=== PATIENT | female | born 1965 | race Caucasian/White ===

== ENCOUNTER → 2016-09-24 | Outpatient (CLI) | payer OTHER ==
--- NOTE | 2016-09-25 07:44 | MM ---
Reason for exam: screening (asymptomatic). Last mammogram was performed 2 years and 3 months ago. Physical Findings: A clinical breast exam by your physician is recommended on an annual basis and results should be correlated with mammographic findings. MG Screening Mammo w CAD Bilateral CC and MLO view(s) were taken. Prior study comparison: June 14, 2014, bilateral MG screening mammo w CAD. June 11, 2013, bilateral digital screening mammo w/CAD. The breast tissue is heterogeneously dense. This may lower the sensitivity of mammography. Asymmetric breast tissue in the right breast is stable. There is no discrete abnormality. ASSESSMENT: Negative, BI-RAD 1 RECOMMENDATION: Routine screening mammogram of both breasts in 1 year.
== END | disposition home or self-care (01) ==
LOC: RADMAMWWP 07:02
PROVIDERS: ATTEND Obstetrics & Gynecology
DX: Z12.31 Encounter for screening mammogram for malignant neoplasm of breast (principal)

== ENCOUNTER → 2018-03-24 | Outpatient (CLI) | payer OTHER ==
--- NOTE | 2018-03-26 13:44 | MM ---
Reason for exam: screening (asymptomatic). Last mammogram was performed 1 year and 6 months ago. Physical Findings: A clinical breast exam by your physician is recommended on an annual basis and results should be correlated with mammographic findings. MG Screening Mammo w CAD Bilateral CC and MLO view(s) were taken. Prior study comparison: September 24, 2016, bilateral MG screening mammo w CAD. June 14, 2014, bilateral MG screening mammo w CAD. The breast tissue is heterogeneously dense. This may lower the sensitivity of mammography. No significant changes when compared with prior studies. ASSESSMENT: Negative, BI-RAD 1 RECOMMENDATION: Routine screening mammogram of both breasts in 1 year.
== END | disposition home or self-care (01) ==
LOC: RADMAMWWP 13:30
PROVIDERS: ATTEND Family Medicine
DX: Z12.31 Encounter for screening mammogram for malignant neoplasm of breast (principal)
CPT/HCPCS: 77067

== ENCOUNTER 2018-06-23 10:16 | Day surgery (SDC) | payer BC, OTHER ==
[2018-06-20 10:38] VITALS: BMI 24.2
--- NOTE | 2018-06-22 18:54 | P.GSHP ---
History of Present Illness H&P Date: 06/23/18 CHIEF COMPLAINT: Colon screen HISTORY OF PRESENT ILLNESS: The patient is a 52-year-old female who presents for colon screen. Lower endoscopy was offered for further evaluation and management. PAST MEDICAL HISTORY: Please see list. PAST SURGICAL HISTORY: Please see list. MEDICATIONS: Please see list. ALLERGIES: Please see list. SOCIAL HISTORY: No illicit drug use FAMILY HISTORY: No reports of Crohn disease or ulcerative colitis. REVIEW OF ORGAN SYSTEMS: CONSTITUTIONAL: No reports of fevers or chills. PHYSICAL EXAM: VITAL SIGNS: Stable GENERAL: Well-developed pleasant in no acute distress. HEENT: No scleral icterus. Extraocular movements grossly intact. Moist buccal mucosa. NECK: Supple without lymphadenopathy. CHEST: Unlabored respirations. Equal bilateral excursions. CARDIOVASCULAR: Regular rate and rhythm. Distal 2+ pulses. ABDOMEN: Soft, nontender, nondistended. MUSCULOSKELETAL: No clubbing, cyanosis, or edema. ASSESSMENT: 1. Colon screen. PLAN: 1. Recommend proceeding with a lower endoscopy Past Medical History Additional Past Medical History / Comment(s): recent blood in stool History of Any Multi-Drug Resistant Organisms: None Reported Past Surgical History: Uterine Ablation Additional Past Surgical History / Comment(s): D & C Past Anesthesia/Blood Transfusion Reactions: No Reported Reaction Smoking Status: Never smoker - Past Family History Father Family Medical History: Cancer Medications and Allergies Home Medications Medication Instructions Recorded Confirmed Type L.acidoph,Paracasei, B.lactis 1 each PO DAILY 06/20/18 06/20/18 History [Probiotic] Allergies Allergy/AdvReac Type Severity Reaction Status Date / Time No Known Allergies Allergy Verified 06/20/18 10:26
[~2018-06-23 10:16] MED LIST: LACTATED RINGERS 1,000 ML IV SCH; LIDOCAINE 1% 20 ML VIAL (10MG/ML) FOR IV START INTRADERMA PRN
[2018-06-23 10:41] VITALS: RESP 16; TEMP 97
[2018-06-23] MEDS ORDERED: PROPOFOL 10 MG/ML 20 ML VIAL IV ONE (11:08)
[2018-06-23] MEDS ORDERED: MIDAZOLAM 2 MG/2 ML VIAL ONE (11:08)
--- NOTE | 2018-06-23 11:32 | P.PCN ---
Date of Procedure: 06/23/18 Description of Procedure: PREOPERATIVE DIAGNOSIS: Colonoscopy screening. POSTOPERATIVE DIAGNOSIS: Colonoscopy screening. OPERATION: Colonoscopy to the ileocecal valve and appendiceal orifice. SURGEON: Romi Luke MD. ANESTHESIA: MAC. INDICATIONS: The patient is a 61-year-old female who presents for colonoscopy screening. Benefits and risks were described and informed consent was obtained. DESCRIPTION OF PROCEDURE: The patient had undergone Gatorade, MiraLAX and Dulcolax prep. He had been brought into the operating room and laid in the left lateral decubitus position. After adequate intravenous sedation, the rectum was examined with 2% lidocaine jelly. Small external hemorrhoids were encountered. The rectal tone was within normal limits. No lesions were palpated in the rectal vault. An Olympus colonoscope was advanced until the ileocecal valve and appendiceal orifice were clearly viewed. The prep was excellent with clear visualization of the mucosal folds. The scope was removed with visualization of each mucosal fold. No scattered diverticulosis was encountered. No colonic polyps were found. No evidence of focal colitis was found. Retroflexion of the scope demonstrated grade 1 internal hemorrhoids without active bleeding or inflammation. The colon was desufflated. The patient had tolerated the procedure well. Withdrawal time was over 6 minutes. FINDINGS: Internal hemorrhoids, grade 1 External prolapsed hemorrhoids, grade 1 No arteriovenous malformations. No adenomatous polyps. No focal colitis. RECOMMENDATIONS: Lower endoscopy in 10 years per screening guidelines, 2027 Plan - Discharge Summary New Discharge Prescriptions: No Action L.acidoph,Paracasei, B.lactis [Probiotic] 1 each PO DAILY Discharge Medication List L.acidoph,Paracasei, B.lactis [Probiotic] 1 each PO DAILY 06/20/18 [History]
[2018-06-23 11:52] VITALS: BP 117/76; PULSE 75
== END 2018-06-23 12:13 | disposition home or self-care (01) ==
LOC: ORWHC2ENDO 10:16
PROVIDERS: ATTEND Surgery Plastic and Reconstructive Surgery
DX: K64.0 First degree hemorrhoids (principal); K64.8 Other hemorrhoids
CPT/HCPCS: 81025; 45378; J2250; J2704

== ENCOUNTER → 2019-06-19 | Outpatient (CLI) | payer BC ==
--- NOTE | 2019-06-22 08:59 | MM ---
Reason for exam: screening (asymptomatic). Last mammogram was performed 1 year and 3 months ago. History: Patient is postmenopausal. Physical Findings: A clinical breast exam by your physician is recommended on an annual basis and results should be correlated with mammographic findings. MG Screening Mammo w CAD Bilateral CC and MLO view(s) were taken. Prior study comparison: March 24, 2018, bilateral MG screening mammo w CAD. September 24, 2016, bilateral MG screening mammo w CAD. The breast tissue is heterogeneously dense. This may lower the sensitivity of mammography. New right upper inner quadrant middle posterior depth focal asymmetry. ASSESSMENT: Incomplete: need additional imaging evaluation, BI-RAD 0 RECOMMENDATION: Special view mammogram of the right breast. If lesion persists on supplemental views, image directed ultrasound is recommended. [facility] will attempt to contact patient to return for supplemental views and ultrasound if indicated.
== END | disposition home or self-care (01) ==
LOC: RADMAMWWP 07:24
PROVIDERS: ATTEND Family Medicine
DX: Z12.31 Encounter for screening mammogram for malignant neoplasm of breast (principal)
CPT/HCPCS: 77067

== ENCOUNTER → 2019-07-01 | Outpatient (CLI) | payer BC ==
--- NOTE | 2019-07-01 14:40 | MM ---
Reason for exam: additional evaluation requested from abnormal screening. Last mammogram was performed less than 1 month ago. History: Patient is postmenopausal. Physical Findings: Nurse did not find any significant physical abnormalities on exam. MG 3D Work Up W/Cad RT Spot compression CC, spot compression MLO, and ML view(s) were taken of the right breast. Prior study comparison: June 19, 2019, bilateral MG screening mammo w CAD. March 24, 2018, bilateral MG screening mammo w CAD. The breast tissue is heterogeneously dense. This may lower the sensitivity of mammography. The previously seen abnormality resolves on additional views and appears as fibroglandular tissue compatible with summation. No suspicious abnormality. These results were verbally communicated with the patient and result sheet given to the patient on 07/01/19. ASSESSMENT: Negative, BI-RAD 1 RECOMMENDATION: Return to routine screening mammogram schedule for both breasts.
== END | disposition home or self-care (01) ==
LOC: RADMAMWWP 13:47
PROVIDERS: ATTEND Family Medicine
DX: R92.8 Other abnormal and inconclusive findings on diagnostic imaging of breast (principal)
CPT/HCPCS: 77061; 77065

== ENCOUNTER → 2020-07-20 | Outpatient (CLI) | payer BC ==
--- NOTE | 2020-07-22 10:23 | MM ---
Reason for exam: screening (asymptomatic). Last mammogram was performed 1 year and 1 month ago. History: Patient is postmenopausal. Physical Findings: A clinical breast exam by your physician is recommended on an annual basis and results should be correlated with mammographic findings. MG Screening Mammo w CAD Bilateral CC and MLO view(s) were taken. Prior study comparison: July 01, 2019, right breast MG 3d work up w/cad RT. June 19, 2019, bilateral MG screening mammo w CAD. The breast tissue is heterogeneously dense. This may lower the sensitivity of mammography. Posterior right CC and posterior left MLO view asymmetric densities are unchanged. No significant changes when compared with prior studies. ASSESSMENT: Negative, BI-RAD 1 RECOMMENDATION: Routine screening mammogram of both breasts in 1 year.
== END | disposition home or self-care (01) ==
LOC: RADMAMWWP 11:12
PROVIDERS: ATTEND Obstetrics & Gynecology
DX: Z12.31 Encounter for screening mammogram for malignant neoplasm of breast (principal)
CPT/HCPCS: 77067

== ENCOUNTER → 2021-07-26 | Outpatient (CLI) | payer BC ==
--- NOTE | 2021-07-27 14:31 | MM ---
Reason for exam: screening (asymptomatic). Last mammogram was performed 1 year ago. History: Patient is postmenopausal. Taking estrogen for 2 months. Taking progesterone for 2 months. Physical Findings: A clinical breast exam by your physician is recommended on an annual basis and results should be correlated with mammographic findings. MG 3D Screening Mammo W/Cad Bilateral CC and MLO view(s) were taken. Prior study comparison: July 20, 2020, bilateral MG screening mammo w CAD. July 01, 2019, right breast MG 3d work up w/cad RT. The breast tissue is heterogeneously dense. This may lower the sensitivity of mammography. No significant changes when compared with prior studies. ASSESSMENT: Benign, BI-RAD 2 RECOMMENDATION: Routine screening mammogram of both breasts in 1 year.
== END | disposition home or self-care (01) ==
LOC: RADMAMWWP 10:57
PROVIDERS: ATTEND Obstetrics & Gynecology
DX: Z12.31 Encounter for screening mammogram for malignant neoplasm of breast (principal); Z78.0 Asymptomatic menopausal state
CPT/HCPCS: 77063; 77067

== ENCOUNTER → 2022-07-24 | Outpatient (CLI) | payer BC ==
--- NOTE | 2022-07-24 10:05 | MM ---
Reason for Exam: Clinical finding. Last screening mammogram was performed 12 month(s) ago. Indicated Problems: Pain. Patient History: Menarche at age 15. First Full-Term at age 32. Late child-bearing (after 32). Postmenopausal. Currently using Estrogen, for 2 months. Currently using Progesterone, for 2 months. Risk Values: Salima 5 year model risk: 1.6%. NCI Lifetime model risk: 11.4%. Tissue Density: The breast tissue is heterogeneously dense. This may lower the sensitivity of mammography. Findings: Analyzed By CAD. No suspicious masses or architectural distortion. No worrisome cluster of microcalcifications within either breast. No significant change from prior exams. Overall Assessment: Negative, BI-RAD 1 Management: Screening Mammogram of both breasts in 1 year. A clinical breast exam by your physician is recommended on an annual basis and results should be correlated with mammographic findings. This exam should not preclude additional follow-up of suspicious palpable abnormalities. Results were given to the patient verbally at the time of exam. Electronically signed and approved by: Sukhjinder Kathleen D.O.
== END | disposition home or self-care (01) ==
LOC: RADMAMWWP 09:32
PROVIDERS: ATTEND Obstetrics & Gynecology
DX: N64.4 Mastodynia (principal); R92.2 Inconclusive mammogram; Z78.0 Asymptomatic menopausal state
CPT/HCPCS: 77062; 77066

== ENCOUNTER → 2023-09-13 | Outpatient (CLI) | payer BC ==
--- NOTE | 2023-09-13 16:11 | MM ---
Reason for Exam: Screening (asymptomatic). Last mammogram was performed 1 year(s) and 1 month(s) ago. Patient History: Menarche at age 15. First Full-Term at age 32. Late child-bearing (after 32). Postmenopausal. Currently using Estrogen, for 2 months. Currently using Progesterone, for 2 months. Risk Values: Salima 5 year model risk: 1.7%. NCI Lifetime model risk: 10.9%. Prior Study Comparison: 07/20/2020 Bilateral Screening Mammogram, [facility]. 07/26/2021 Bilateral Screening Mammogram, [facility]. 07/24/2022 Bilateral MG 3D diag mammo w/cad [facility], [facility]. Tissue Density: The breast tissue is heterogeneously dense. This may lower the sensitivity of mammography. Findings: Analyzed By CAD. There is no suspicious group of microcalcifications or new suspicious mass. Overall Assessment: Negative, BI-RAD 1 Management: Screening Mammogram of both breasts in [address] [facility] will attempt to contact patient to return for supplemental views and ultrasound if indicated. Patient should continue monthly self-breast exams. A clinical breast exam by your physician is recommended on an annual basis. This exam should not preclude additional follow-up of suspicious palpable abnormalities. Note on Salima scores and lifetime risk: 1. A Salima score greater than 3% is considered moderate risk. If this is the case, consider specialist referral to assess eligibility for a risk reducing agent. 2. If overall lifetime risk for the development of breast cancer is 20% or higher, the patient may qualify for future screening with alternating mammogram and breast MRI. Electronically signed and approved by: Rubin Aburto DO
== END | disposition home or self-care (01) ==
LOC: RADMAMWWP 12:51
PROVIDERS: ATTEND Obstetrics & Gynecology
DX: Z12.31 Encounter for screening mammogram for malignant neoplasm of breast (principal); Z78.0 Asymptomatic menopausal state
CPT/HCPCS: 77063; 77067

== ENCOUNTER → 2024-11-17 | Outpatient (CLI) | payer BC ==
--- NOTE | 2024-11-17 09:38 | MM ---
Reason for Exam: Screening (asymptomatic). Last mammogram was performed 1 year(s) and 3 month(s) ago. Patient History: Menarche at age 15. First Full-Term at age 32. Late child-bearing (after 32). Postmenopausal. Currently using Estrogen, for 2 months. Currently using Progesterone, for 2 months. Risk Values: Salima 5 year model risk: 1.8%. NCI Lifetime model risk: 10.7%. Prior Study Comparison: 07/26/2021 Bilateral Screening Mammogram, [facility]. 07/24/2022 Bilateral MG 3D diag mammo w/cad [facility], [facility]. 09/13/2023 Bilateral MG 3D screening mammo w/cad, [facility]. Tissue Density: The breasts are heterogeneously dense, which may obscure small masses. Findings: Analyzed By CAD. There is no suspicious group of microcalcifications or new suspicious mass in either breast. Overall Assessment: Benign, BI-RAD 2 Management: Screening Mammogram of both breasts in 1 year. . Patient should continue monthly self-breast exams. A clinical breast exam by your physician is recommended on an annual basis. This exam should not preclude additional follow-up of suspicious palpable abnormalities. Note on Salima scores and lifetime risk: 1. A Salima score greater than 3% is considered moderate risk. If this is the case, consider specialist referral to assess eligibility for a risk reducing agent. 2. If overall lifetime risk for the development of breast cancer is 20% or higher, the patient may qualify for future screening with alternating mammogram and breast MRI. [facility], , 11/17/2024 9:35 AM. Electronically signed and approved by: Keyon Agarwal M.D. Radiolog[facility]
== END | disposition home or self-care (01) ==
LOC: RADMAMWWP 09:17
PROVIDERS: ATTEND Obstetrics & Gynecology
DX: Z12.31 Encounter for screening mammogram for malignant neoplasm of breast (principal); R92.333 Mammographic heterogeneous density, bilateral breasts; Z78.0 Asymptomatic menopausal state
CPT/HCPCS: 77063; 77067